=== PATIENT | male | born 1985 | race Hispanic/Latino ===

== ENCOUNTER 2017-06-01 22:48 | Emergency (ER) | payer BC ==
[2017-06-01] MEDS ORDERED: IBUPROFEN 800 MG TAB ONE (23:26)
== END 2017-06-02 00:17 | disposition home or self-care (01) ==
LOC: EDH 22:48
DX: S93.401A Sprain of unspecified ligament of right ankle, initial encounter (principal); Z72.0 Tobacco use; X58.XXXA Exposure to other specified factors, initial encounter; Y93.89 Activity, other specified; Y92.89 Other specified places as the place of occurrence of the external cause; Y99.8 Other external cause status
CPT/HCPCS: 73610

== ENCOUNTER 2017-12-22 11:37 | Emergency (ER) | payer BC ==
[2017-12-22] MEDS ORDERED: DEXAMETHASONE SOD PHOSPHATE 10MG/ML 1ML VIAL ONE (11:53)
== END 2017-12-22 12:02 | disposition home or self-care (01) ==
LOC: EDH 11:37
DX: L03.113 Cellulitis of right upper limb (principal); L23.9 Allergic contact dermatitis, unspecified cause; Z72.0 Tobacco use
CPT/HCPCS: 96372; 99283; J1100